=== PATIENT | male | born 1935 | race Caucasian/White ===

== ENCOUNTER → 2016-03-16 | Outpatient (CLI) | payer OTHER | LOC: MMPC 11:11 | PROVIDERS: ATTEND Nurse Practitioner | DX: B37.0 Candidal stomatitis (principal) | CPT/HCPCS: 87880; 99213; G0463 ==

== ENCOUNTER → 2016-03-27 | Outpatient (CLI) | payer OTHER ==
[2016-03-27 13:49] LABS: BASOPHILS # (AUTO) 0.02 10*3/UL; BASOPHILS % (AUTO) 0.3 % (0-1); EOSINOPHILS % (AUTO) 5.2 % (0-8); HEMATOCRIT 40.5 % (42.0-52.0); HEMOGLOBIN 13.8 g/dL (14.0-18.0); IMM GRAN % (AUTO) 0.1 % (0-5); IMM GRAN# (AUTO) 0.01 10*3/UL; LYMPHOCYTES % (AUTO) 11.4 % (10-50); MEAN CORPUSCULAR HEMOGLOBIN 30.8 PG (27-31); MEAN CORPUSCULAR HGB CONC 34.1 g/dL (33-37); MEAN PLATELET VOLUME 8.4 FL (7.4-12.2); MONOCYTES # (AUTO) 0.51 10*3/UL (0.3-0.8); MONOCYTES % (AUTO) 6.4 % (5-15); NEUTROPHILS # (AUTO) 6.07 10*3/UL; NEUTROPHILS % (AUTO) 76.6 % (50-80); RDW COEFFICIENT OF VARIATION 13.5 % (11.5-14.5); RED BLOOD COUNT 4.48 10^6/uL (4.70-6.10); WHITE BLOOD COUNT 7.92 10^3/uL (4.8-10.8)
[2016-03-27 14:23] LABS: LDL CHOLESTEROL,CALCULATED 39.8 mg/dL
[2016-03-27 14:24] LABS: ASPARTATE AMINO TRANSFERASE 39 IU/L (21-57); BILIRUBIN,TOTAL 0.6 mg/dL (0.3-1.2); BLOOD UREA NITROGEN 16 mg/dL (7-22); CALCIUM 9.4 mg/dL (8.7-10.7); CHLORIDE 99 meq/L (98-112); CREATININE 1.6 mg/dL (0.70-1.50); GLUCOSE 99 mg/dL (78-110); POTASSIUM 4.6 meq/L (3.8-5.2); SODIUM 136 meq/L (135-145); TOTAL PROTEIN 8.1 g/dL (6.1-8.0)
[2016-03-27 14:39] LABS: PLATELET MORPHOLOGY COMMENT NORMAL MORPHOLOGY (NORM)
== END ==
LOC: LAB 13:31
PROVIDERS: ATTEND Internal Medicine
DX: E78.5 Hyperlipidemia, unspecified (principal); I50.9 Heart failure, unspecified; I77.9 Disorder of arteries and arterioles, unspecified; Z12.5 Encounter for screening for malignant neoplasm of prostate
CPT/HCPCS: 36415; 80053; 80061; 82550; 83880; 84443; 85025; G0103

== ENCOUNTER → 2016-03-28 | Outpatient (CLI) | payer OTHER | LOC: MMPC 11:11 | PROVIDERS: ATTEND Internal Medicine | DX: I10 Essential (primary) hypertension (principal); I95.1 Orthostatic hypotension; R79.89 Other specified abnormal findings of blood chemistry; Z02.89 Encounter for other administrative examinations ==

== ENCOUNTER → 2016-06-27 | Outpatient (CLI) | payer OTHER ==
[2016-06-27 17:18] LABS: BUN/CREATININE RATIO 15.55 (6-20); CALCIUM 8.9 mg/dL (8.7-10.7)
== END ==
LOC: MOB LAB 16:25
PROVIDERS: ATTEND Internal Medicine
DX: R79.89 Other specified abnormal findings of blood chemistry (principal); I10 Essential (primary) hypertension
CPT/HCPCS: 36415; 80048